=== PATIENT | male | born 1960 | race African-American/Black ===

== ENCOUNTER 2018-02-08 10:50 | Emergency (ER) | payer MEDICAID, OTHER ==
[~2018-02-08] VITALS: Ht 180.3 cm; Wt 83.5 kg
[2018-02-08] MEDS ORDERED: IBUPROFEN 600MG TABLET PO STA (11:13)
[2018-02-08 12:01] LABS: CLARITY URINE CLOUDY (CLEAR); KETONES URINE NEGATIVE (NEGATIVE); LEUKOCYTE ESTERASE URINE TRACE (NEGATIVE); NITRITE URINE NEGATIVE (NEGATIVE); OCCULT BLOOD URINE 3+ (NEGATIVE); PH URINE 5.5 (4.5-8.0); PROTEIN URINE 1+ (NEGATIVE); SPECIFIC GRAVITY URINE 1.022 (1.005-1.030)
[2018-02-08 12:16] LABS: COLOR URINE BLOODY (YELLOW)
[2018-02-08 12:27] LABS: BASOPHILS % 0.5 % (0.0-2.0); EOSINOPHILS % 0.1 % (0.0-5.0); HEMATOCRIT. 43.9 % (42.0-52.0); LYMPHOCYTES % 8.9 % (20.0-50.0); MEAN CORPUSCULAR HEMOGLOBIN 32.5 pg (28.0-32.0); MEAN CORPUSCULAR VOLUME 95.1 fL (80.0-94.0); MEAN PLATELET VOLUME 8.1 fl (7.4-10.4); MONOCYTES % 6.3 % (2.0-8.0); NEUTROPHILS % 84.2 % (40.0-76.0); PLATELET 164 x1000/uL (130-400); RED BLOOD CELL COUNT 4.62 mill/uL (4.7-6.1); RED CELL DISTRIBUTION WIDTH 13.4 % (11.6-14.6)
[2018-02-08 12:32] LABS: CHLORIDE 106 mEq/L (98-107)
[2018-02-08 17:05] VITALS: BP 152/66
== END 2018-02-08 17:07 | disposition home or self-care (01) ==
LOC: ER 11:30
DX: N13.2 Hydronephrosis with renal and ureteral calculous obstruction (principal); I10 Essential (primary) hypertension; E78.00 Pure hypercholesterolemia, unspecified; Z88.0 Allergy status to penicillin
CPT/HCPCS: 36415; 74176; 76700; 80053; 81003; 83690; 85025; 99285

== ENCOUNTER 2018-02-08 22:15 | Emergency (ER) | payer MEDICAID ==
[~2018-02-08] VITALS: Ht 180.3 cm; Wt 83.0 kg
[2018-02-09 06:30] VITALS: BP 146/88
== END 2018-02-09 07:39 | disposition home or self-care (01) ==
LOC: ER 22:15
DX: N20.0 Calculus of kidney (principal); E78.00 Pure hypercholesterolemia, unspecified; I10 Essential (primary) hypertension; Z88.0 Allergy status to penicillin
CPT/HCPCS: 99283; Z7610